=== PATIENT | male | born 1990 | race Caucasian/White ===

== ENCOUNTER 2017-10-08 21:11 | Emergency (ER) | payer SELFPAY ==
[~2017-10-08] VITALS: Ht 177.8 cm; Wt 108.9 kg
[~2017-10-08 21:11] MED LIST: AGM875T PO; AMOX500C2 PO; BTR10SP2 NS; CLIN300C3 PO; HYDR-757 PO; METH4TAB PO; NAPR-684 PO; PRD20T PO; SULF1TAB38 PO; TRAM-42 PO
--- OUTSIDE RECORDS SUMMARY | 2017-10-08 21:17 | XMS REPORT ---
Author Author JARVIS MELARA [facility] Address [address] [place] [address] Care Team Providers Care History Faculty Member Name Role Phone JARVIS MELARA Unavailable PROBLEMS Type Condition ICD9-CM Code [id number] Code Onset Dates Condition Status SNOMED Code Problem Unspecified intracranial hemorrhage 432.9 Active 3478759 Problem Cellulitis and abscess of unspecified site 682.9 Active [id number] ALLERGIES No Information SOCIAL HISTORY Never Assessed PLAN OF CARE VITAL SIGNS MEDICATIONS Unknown Medications RESULTS No Results PROCEDURES Procedure Date Ordered Result Body Site TWINRIX (HEP A/B) February 27, 2017 SINGLE IMMUNIZATION ADMIN February 27, 2017 IMMUNIZATIONS Vaccine Route Administration Date Status TWINRIX (HEP A/B) IM Intramuscular February 27, 2017 Administered MEDICAL (GENERAL) HISTORY Type Description Date Medical History Stroke at young age Surgical History Appendix Surgical History Leg surgery
--- OUTSIDE RECORDS SUMMARY | 2017-10-08 21:17 | XMS REPORT ---
Author Author JULIET GANNON Organization [employer] Address Unknown Phone Unavailable Care Team Providers Care Jalousie Installer Name Role Phone JULIET GANNON CP Unavailable Allergies No Known Allergies Problems Problem Type Condition Code Onset Dates Condition Status Problem Unspecified intracranial hemorrhage 432.9 Active Problem Cellulitis and abscess of unspecified site 682.9 Active Medications No Known Medications Results No Known Results Summary Purpose Langoinicalfor; to (do) Submission
--- OUTSIDE RECORDS SUMMARY | 2017-10-08 21:17 | XMS REPORT ---
Author Author ANNA GOODEN [facility] Address [address] [place] [address] Care Team Providers Care Auto Electrical Technician Name Role Phone ANNA GOODEN Unavailable PROBLEMS Type Condition ICD9-CM Code [id number] Code Onset Dates Condition Status SNOMED Code Problem Unspecified intracranial hemorrhage 432.9 Active 3047096 Problem Cellulitis and abscess of unspecified site 682.9 Active [id number] ALLERGIES No Information SOCIAL HISTORY Never Assessed PLAN OF CARE VITAL SIGNS MEDICATIONS Unknown Medications RESULTS No Results PROCEDURES Procedure Date Ordered Result Body Site TWINRIX (HEP A/B) December 14, 2016 SINGLE IMMUNIZATION ADMIN December 14, 2016 IMMUNIZATIONS Vaccine Route Administration Date Status TWINRIX (HEP A/B) IM Intramuscular December 14, 2016 Administered MEDICAL (GENERAL) HISTORY Type Description Date Medical History Stroke at young age Surgical History Appendix Surgical History Leg surgery
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
--- NOTE | 2017-10-08 22:19 | ED EENT ---
History of Present Illness General Chief Complaint: Dental Problems/Pain Stated Complaint: TOOTH PAIN Nursing Triage Note: dental pain, finished ATB today. Source: patient, spouse Exam Limitations: no limitations History of Present Illness Time seen by provider: 22:19 Initial Comments 26-year-old male patient presents to the emergency department with complaints of right lower dental pain. Patient states he finished amoxicillin today. Was seen previously at [facility]. States he plans on contacting a dentist tomorrow to schedule an appointment. Denies fevers. Location: dental Prearrival Treatment: over the counter meds Allergies and Home Medications Allergies Coded Allergies: No Known Drug Allergies (Unverified , 04/09/09) Home Medications Amoxicillin 500 Mg Capsule, 1,000 MG PO BID, #40 Prescribed by: CHRISTIE CARDONA on 01/24/16 0108 Amoxicillin 500 Mg Capsule, 1,000 MG PO TID, #30 Ref 0 Prescribed by: NIMESH SANDERS on 10/08/170 Tramadol HCl 50 Mg Tablet, 50 MG PO Q6H, #20 For pain not controlled by Tylenol and ibuprofen Prescribed by: CHRISTIE CARDONA on 01/24/16 0109 Tramadol HCl 50 Mg Tablet, 50 MG PO Q4H PRN for pain, #14 Ref 0 Prescribed by: NIMESH SANDERS on 10/08/172239 Review of Systems Constitutional: No chills, No fever, No malaise Eyes: No Symptoms Reported Ears: No Symptoms Reported Nose: no symptoms reported Mouth: see HPI Throat: no symptoms reported Respiratory: no symptoms reported Cardiovascular: no symptoms reported Gastrointestinal: no symptoms reported Skin: no symptoms reported Neurological: No Symptoms Reported All Other Systems Reviewed Negative Unless Noted: Yes (Negative excepted noted.) Past Erasvlq-Hnvagx-Vvzvcr Hx Patient Social History Alcohol Use: Occasionally Uses Alcohol Beverage of Choice: Beer Recreational Drug Use: No (XANAX) Smoking Status: Current Everyday Smoker Type Used: Cigarettes 2nd Hand Smoke Exposure: No Recent Foreign Travel: No Contact w/Someone Who Travel: No Recent Infectious Disease Expo: No Recent Hopitalizations: No Physical Abuse: No Sexual Abuse: No Mistreated: No Fear: No Immunizations Up To Date Tetanus Booster (TDap): Less than 5yrs Surgeries History of Surgeries: Yes (APPENDECTOMY, LEFT FOOT RECONSTRUCTION OF LIGAMENTS) Surgeries: Appendectomy, Orthopedic Respiratory History of Respiratory Disorde: No Cardiovascular History of Cardiac Disorders: No Neurological History of Neurological Disord: No Reproductive System Hx Reproductive Disorders: No Genitourinary History of Genitourinary Disor: No Gastrointestinal History of Gastrointestinal Di: No Musculoskeletal History of Musculoskeletal Dis: Yes (ENTRAPPED NERVE IN LEFT LEG) Endocrine History of Endocrine Disorders: No HEENT History of HEENT Disorders: No Cancer History of Cancer: No Psychosocial History of Psychiatric Problem: No Suicide Risk Score: 1 Integumentary History of Skin or Integumenta: No Blood Transfusions History of Blood Disorders: No Reviewed Nursing Assessment Reviewed/Agree w Nursing PMH: Yes Family Medical History Significant Family History: Cancer, GI Disease Physical Exam Vital Signs Vital Sign - Last 12Hours 10/08/17 21:18 Temp 98.9 Pulse 81 Resp 18 B/P (MAP) 144/108 (120) Pulse Ox 98 O2 Delivery Room Air General Appearance: WD/WN, no apparent distress Eyes: bilateral eye normal inspection, bilateral eye PERRL, bilateral eye EOMI Ears: bilateral ear auricle normal, bilateral ear canal normal, bilateral ear TM normal Nose: normal inspection Mouth/Throat: pharynx normal, No excessive drooling, No mandibular swelling, No maxillary swelling, other (Gingiva inflamed without until abscess noted. Multiple dental caries noted throughout the mouth. Tenderness noted over the right lower dentition) Neck: non-tender, full range of motion, supple, normal inspection Cardiovascular: normal peripheral pulses, regular rate, rhythm, no murmur Respiratory: lungs clear, normal breath sounds, no respiratory distress, no accessory muscle use Neurologic/Psychiatric: alert, normal mood/affect, oriented x 3 Skin: normal color, warm/dry Progress/Results/Core Measures Results/Orders My Orders Orders - INMESH SANDERS Ceftriaxone Injection (Rocephin Injectio (10/08/17 22:45) Lidocaine 1% Injection (Xylocaine 1% Inj (10/08/17 22:45) Rx-Tramadol Hcl (Rx-Ultram) (10/08/17 22:32) Lidocaine 2% Viscous 15 Ml (Xylocaine Vi (10/08/17 22:45) Lidocaine 1% (Xylocaine 1%) (10/08/17 22:49) Medications Given in ED Current Medications Medications Dose Ordered Sig/Brian Route Start Time Stop Time Status Last Admin Dose Admin Ceftriaxone Sodium 1,000 mg ONCE ONCE IM 10/08/17 22:45 10/08/17 22:46 DC 10/08/17 23:05 1,000 MG Lidocaine HCl 2.1 ml ONCE ONCE INJ 10/08/17 22:45 10/08/17 22:46 DC 10/08/17 23:05 2.1 ML Lidocaine HCl 30 ml ONCE ONCE PO 10/08/17 22:45 10/08/17 22:46 DC 10/08/17 23:05 30 ML Vital Signs/I&O Vital Sign - Last 12Hours 10/08/17 10/08/17 21:18 23:31 Temp 98.9 Pulse 81 78 Resp 18 18 B/P (MAP) 144/108 (120) Pulse Ox 98 98 O2 Delivery Room Air Room Air Blood Pressure Mean: 120 Departure Communication (Admissions) Progress Notes Patient seen and evaluated. Patient given 1 g IM Rocephin in the emergency department. Plan for discharge to home. Impression Impression: Primary Impression: Gingivitis Additional Impression: Dental caries Disposition: HOME, SELF-CARE Condition: Improved Departure-Patient Inst. Decision time for Depature: 22:39 Referrals: NO,LOCAL PHYSICIAN (PCP) Primary Care Physician [facility] Patient Instructions: Gingivitis (DC) Add. Discharge Instructions: All discharge instructions reviewed with patient and/or family. Voiced understanding. Medications as directed. Tylenol 1000 mg by mouth every six hours as needed for pain. Motrin 800 mg by mouth every 8 hours as needed for pain. Soft diet. Floss teeth at least twice daily. Follow-up with the dentist of your choice for recheck and treatment. Call tomorrow for appointment time. Return to the emergency department for worsened symptoms or any other concerns. Lidocaine with Benzocaine pads: Place 1 pad between the affected teeth and bite down gently for 5-10 minutes. Remove the pad and discard. Repeat every 4- 6 hours as needed for pain. DO NOT fall asleep with the pad in your mouth, swallow the pad, or lay down with the pad in your mouth due to risk of choking, bowel obstruction, and . Scripts Tramadol HCl (Tramadol HCl) 50 Mg Tablet 50 MG PO Q4H Y for pain, #14 TAB 0 Refills Prov: NIMESH SANDERS 10/08/17 Amoxicillin (Amoxicillin) 500 Mg Capsule 1000 MG PO TID, #30 CAP 0 Refills Prov: NIMESH SANDERS 10/08/17 NIMESH SANDERS Oct 08, 2017 22:19
[2017-10-08] MEDS ORDERED: RX-TRAMADOL 50 MG (ULTRAM) TAB PPK#4 PO STA (22:32)
[2017-10-08] MEDS ORDERED: AMOX500C2 PO (22:40)
[2017-10-08] MEDS ORDERED: TRAM50TA2 PO (22:40)
[2017-10-08] MEDS ORDERED: LIDOCAINE 1% INJ 20 ML (XYLOCAINE) VIAL INJ ONE (22:45)
[2017-10-08] MEDS ORDERED: cefTRIAXone 1 GM (ROCEPHIN) VIAL IM ONE (22:45)
[2017-10-08] MEDS ORDERED: LIDOCAINE 2% VISCOUS 15 ML UDC PO ONE (22:45)
[2017-10-08] MEDS ORDERED: LIDOCAINE 1% INJ 50 ML (XYLOCAINE) VIAL ONE (22:49)
[2017-10-08 23:31] VITALS: BP 134/80
== END 2017-10-08 23:31 | disposition home or self-care (01) ==
LOC: EDUNIT# 21:11 → ER 21:13
DX: K02.9 Dental caries, unspecified (principal); K05.10 Chronic gingivitis, plaque induced; F17.210 Nicotine dependence, cigarettes, uncomplicated; Z90.49 Acquired absence of other specified parts of digestive tract
CPT/HCPCS: 99284